=== PATIENT | male | born 1965 | race Caucasian/White ===

== ENCOUNTER 2017-04-20 21:54 | Emergency (ER) | payer MEDICAID, OTHER ==
[~2017-04-20] VITALS: Ht 172.7 cm; Wt 81.8 kg
[2017-04-20 22:02] VITALS: BP 166/102; PULSE 108; RESP 18; O2SAT 98
[2017-04-20] MEDS ORDERED: TdaP Vaccine 0.5 mL Inj IM ONE (22:40)
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
[2017-04-20] MEDS ORDERED: CEPH500T PO (23:52)
[2017-04-21 00:14] VITALS: BP 160/100; PULSE 107; RESP 20; O2SAT 97
[2017-04-21 00:17] VITALS: BP 160/100; PULSE 107; RESP 20; O2SAT 97
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
== END 2017-04-21 00:17 | disposition home or self-care (01) ==
LOC: SED 21:54
DX: S81.812A Laceration without foreign body, left lower leg, initial encounter (principal); W26.0XXA Contact with knife, initial encounter; Y93.89 Activity, other specified; Y92.89 Other specified places as the place of occurrence of the external cause; Y99.8 Other external cause status; Z23 Encounter for immunization